=== PATIENT | male | born 1960 | race African-American/Black ===

== ENCOUNTER 2020-02-25 19:37 | Emergency (ER) | payer OTHER ==
[~2020-02-25] VITALS: Ht 185.4 cm; Wt 100.0 kg
[2020-02-25] MEDS ORDERED: KETOROLAC 30MG/ML VIAL IV STA (20:36)
[2020-02-25] MEDS ORDERED: SODIUM CHLORIDE 0.9% 1000ML BAG (SEPSIS BOLUS) IV ONE (20:45)
[2020-02-25 21:59] LABS: EOSINOPHILS % 3.2 % (0.0-5.0); HEMATOCRIT. 38.2 % (42.0-52.0); HEMOGLOBIN. 12.3 g/dL (14.0-18.0); LYMPHOCYTES % 41.7 % (20.0-50.0); MEAN CORPUSCULAR HEMOGLOBIN 23.4 pg (28.0-32.0); MEAN CORPUSCULAR VOLUME 72.6 fL (80.0-94.0); MEAN PLATELET VOLUME 10.7 fl (7.4-10.4); MONOCYTES % 8.7 % (2.0-8.0); NEUTROPHILS % 45.4 % (40.0-76.0); PLATELET 148 x1000/uL (130-400); RED BLOOD CELL COUNT 5.26 mill/uL (4.7-6.1); RED CELL DISTRIBUTION WIDTH 15.7 % (11.6-14.6)
[2020-02-25 22:02] LABS: INR 1.2; PROTHROMBIN TIME 13.3 sec (9.6-11.0)
[2020-02-26 00:39] LABS: CHLORIDE 110 mEq/L (98-107)
[2020-02-26] MEDS ORDERED: ACETAMINOPHEN 325MG TABLET PO PRN (02:45)
[2020-02-26] MEDS ORDERED: ONDANSETRON HCL 4MG/2ML INJ IV PRN (02:45)
[2020-02-26] MEDS ORDERED: MAGNESIUM/ALUMINUM HYDROXIDE/SIMETHICONE 30ML UDC PO PRN (02:45)
[2020-02-26] MEDS ORDERED: GUAIFENESIN 200MG/10ML SUGAR FREE UDC PO PRN (02:45)
[2020-02-26] MEDS ORDERED: DOCUSATE SODIUM 100MG CAPSULE PO PRN (02:45)
[2020-02-26] MEDS ORDERED: HYDROCODONE/ACETAMINOPHEN 5/325MG TABLET PO PRN (02:45)
[2020-02-26] MEDS ORDERED: CLONIDINE 0.1MG TABLET PO PRN (02:45)
[2020-02-26] MEDS ORDERED: AZITHROMYCIN 500 MG in DEXT 5% WATER 250 ML IV SCH (03:00)
[2020-02-26 03:20] VITALS: BP 159/62
[2020-02-26] MEDS ORDERED: AMLODIPINE 10MG TABLET PO SCH (09:00)
== END 2020-02-26 03:33 | disposition left against medical advice (07) ==
LOC: ER 19:37 → EDBEDREQTM 23:50 → EDBEDREQ 23:50 → ER 02-26 03:33 → CANBEDREQ 02-26 08:19
DX: R50.9 Fever, unspecified (principal); R53.1 Weakness; I10 Essential (primary) hypertension; Z03.818 Encounter for observation for suspected exposure to other biological agents ruled out; Z88.0 Allergy status to penicillin; Z88.8 Allergy status to other drugs, medicaments and biological substances
CPT/HCPCS: 36415; 71045; 80053; 83605; 83880; 84145; 84484; 85025; 85610; 87040; 87077; 87635; 87804; 93005; 96374; 99285; J0456; J1885; J7030; J7060; 96361